=== PATIENT | male | born 1995 | race Caucasian/White ===

== ENCOUNTER 2018-01-25 09:59 | Inpatient (IN) | payer OTHER ==
[2018-01-25 10:42] VITALS: BMI 19.7
--- NOTE | 2018-01-25 11:05 | HP ---
COWS - Scale Resting Pulse: 1= [place] 81-100 Sweatin= Chills/Flushing Restless Observation: 3= Extraneous Movement Pupil Size: 2= Moderately Dilated Bone or Joint Aches: 2= Severe Diffuse Aches Runny Nose/ Eye Tearin= Runny Nose/Eyes GI Upset > 30mins: 3= Vomiting/Diarrhea Tremor Observation: 2= Slight Tremor Visible Yawning Observation: 2= >3x During Session Anxiety or Irritability: 2=Irritable/Anxious Goose Flesh Skin: 0=Smooth Skin COWS Score: 20 CIWA Score - CIWA Score Nausea/Vomitin Muscle Tremors: 3 Anxiety: 3 Agitation: 3 Paroxysmal Sweats: 2 Orientation: 0-Oriented Tacttile Disturbances: 2-Mild Itch/Numbness/Burn Auditory Disturbances: 2-Mild Harshness/Frighten Visual Disturbances: 1-Very Mild Sensitivity Headache: 2-Mild CIWA-Ar Total Score: 21 Admission ROS S - HPI Chief Complaint: i need help to stop using heroin,oxycodone ,xanax,cocaine dependence seeking detox,withdrawal symptom,never been in detox anxiety,depression,insomnia 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 to stop using drugs, Allergies/Adverse Reactions: Allergies Allergy/AdvReac Type Severity Reaction Status Date / Time No Known Allergies Allergy Verified 01/25/18 10:49 History of Present Illness: this 22 years old male with heroin,cocaine,xanax,oxycodone dependence seeking detox as mentioned - Ebola screening Have you traveled outside of the country in the last 21 days: No (N) Have you had contact with anyone from an Ebola affected area: No Have you been sick,other than usual withdrawal symptoms: No Do you have a fever: No - Review of Systems Constitutional: Chills, Loss of Appetite, Malaise, Night Sweats, Changes in sleep, Weakness, Unintentional Wgt. Loss EENT: reports: Tearing, Nose Congestion Respiratory: reports: No Symptoms reported Cardiac: reports: No Symptoms Reported, Palpitations GI: reports: Diarrhea, Nausea, Vomiting, Abdominal cramping : reports: No Symptoms Reported Musculoskeletal: reports: Back Pain, Joint Pain, Muscle Pain, Joint Stiffness Integumentary: reports: Dryness Neuro: reports: Headache, Tremors Endocrine: reports: No Symptoms Reported Hematology: reports: No Symptoms Reported Psychiatric: reports: No Sypmtoms Reported, Judgement Intact, Mood/Affect Appropiate, Orientated x3, Anxious, Depressed Patient History - Patient Medical History Hx Anemia: No Hx Asthma: Yes (childhood asthma) Hx Chronic Obstructive Pulmonary Disease (COPD): No Hx Cancer: No Hx Cardiac Disorders: No Hx Congestive Heart Failure: No Hx Hypertension: No Hx Hypercholesterolemia: No Hx Pacemaker: No HX Cerebrovascular Accident: No Hx Seizures: No Hx Dementia: No Hx Diabetes: No Hx Gastrointestinal Disorders: No Hx Liver Disease: No Hx Genitourinary Disorders: No Hx Sexually Transmitted Disorders: No Hx Renal Disease (ESRD): No Hx Thyroid Disease: No Hx Human Immunodeficiency Virus (HIV): No (last 2016) Hx Hepatitis C: No Hx Depression: Yes (anxiety,depression) Hx Suicide Attempt: No Hx Bipolar Disorder: No Hx Schizophrenia: No Other Medical History: no suicidal,no homicidal - Patient Surgical History Past Surgical History: No - PPD History Previous Implant?: Yes Documented Results: Negative w/o proof Implanted On Prior [facility] Admission?: No PPD to be Administered?: Yes - Smoking Cessation Smoking history: Current every day smoker Have you smoked in the past 12 months: Yes Aproximately how many cigarettes per day: 1 Hx Chewing Tobacco Use: No Initiated information on smoking cessation: Yes 'Breaking Loose' booklet given: 01/25/18 - Substance & Tx. History Hx Alcohol Use: No Hx Substance Use: Yes Substance Use Type: Cocaine, Heroin, Opiates, Tranquilizers Hx Substance Use Treatment: No - Substances Abused Heroin Route: Inhalation Frequency: Daily Amount used: 25 BAGS DAILY ($250) Age of first use: 19 Date of Last Use: 01/24/18 Cocaine Route: Inhalation Frequency: Daily Amount used: 10-15 BAGS DAILY Age of first use: 21 Date of Last Use: 01/24/18 Alprazolam (Xanax) Route: Oral Amount used: 1MG DAILY Age of first use: 17 Date of Last Use: 01/24/18 OXYCODONE Route: Oral Frequency: Daily Amount used: 60 MG DAILY Age of first use: 17 Date of Last Use: 01/24/18 Family Disease History - Family Disease History Family History: Denies Admission Physical Exam BHS - Vital Signs Vital Signs: Vital Signs - 24 hr 05/13/18 10:40 Pulse Rate 94 H Respiratory 16 Rate Blood Pressure 113/74 - Physical General Appearance: Yes: Moderate Distress, Tremorous, Irritable, Sweating, Anxious HEENTM: Yes: Normal ENT Inspection, MAURICIO, Pharynx Normal Respiratory: Yes: Lungs Clear, Normal Breath Sounds, No Respiratory Distress Neck: Yes: Within Normal Limits, Supple, Trachea in good position Breast: Yes: Within Normal Limits Cardiology: Yes: Within Normal Limits, Regular Rhythm, Regular Rate, S1, S2 Abdominal: Yes: Within Normal Limits, Normal Bowel Sounds, Non Tender, Flat, Soft Genitourinary: Yes: Within Normal Limits Back: Yes: Normal Inspection, Muscle Spasm Musculoskeletal: Yes: full range of Motion, Back pain, Muscle Pain, Muscle weakness Extremities: Yes: Within Normal Limits, Normal Range of Motion, Tremors Neurological: Yes: tombstone erector II-XII NML intact, Fully Oriented, Alert, Motor Strength 5/5 Integumentary: Yes: Dry Lymphatic: Yes: Within Normal Limits - Diagnostic (1) Opioid dependence with withdrawal Current Visit: Yes Status: Acute (2) Uncomplicated sedative, hypnotic or anxiolytic withdrawal Current Visit: Yes Status: Acute (3) Cocaine dependence Current Visit: Yes Status: Acute (4) Weight loss Current Visit: Yes Status: Acute (5) Insomnia secondary to depression with anxiety Current Visit: Yes Status: Acute (6) Asthma Current Visit: Yes Status: Acute (7) Low back pain Current Visit: Yes Status: Acute Cleared for Admission [facility] - Detox or Rehab [facility] Level of Care: Medically Managed Detox Regimen/Protocol: Methadone/Valium [facility] Breath Alcohol Content Breath Alcohol Content: 0 Urine Drug Screen - Results Drug Screen Negative: No Urine Drug Screen Results: YADIEL-Cocaine, OPI-Opiates, BZO-Benzodiazepines, TCA- Tricyclic Antidepress
[2018-01-25] MEDS ORDERED: diazePAM 5 MG TABLET PO ONE (11:21)
[2018-01-25] MEDS ORDERED: MENTHOL/PHENOL 1 EACH UD MM PRN (11:21)
[2018-01-25] MEDS ORDERED: MAGNESIUM HYDROX 2400MG/30ML ORAL SUSPENSION 30 ML CUP PO PRN (11:21)
[2018-01-25] MEDS ORDERED: MAGNESIUM CITRATE 300 ML BOTTLE PO PRN (11:21)
[2018-01-25] MEDS ORDERED: LOPERAMIDE HCL 2 MG CAPSULE PO PRN (11:21)
[2018-01-25] MEDS ORDERED: MAG HYDROX/AL HYDROX/SIMETH 30 ML UNIT-DOSE CUP PO PRN (11:21)
[2018-01-25] MEDS ORDERED: ACETAMINOPHEN 325 MG TABLET (FP) PO PRN (11:21)
[2018-01-25] MEDS ORDERED: METHADONE HCL 10 MG TABLET (FOR DETOX USE ONLY) PO ONE ×2 (11:21→23:00)
[2018-01-25] MEDS ORDERED: guaiFENesin/D-METHORPHAN HB 10 ML UNIT-DOSE CUPS PO PRN (11:21)
[2018-01-25] MEDS ORDERED: P-EPHED 60MG/TRIPROLIDI 2.5MG TABLET PO PRN (11:21)
[2018-01-25] MEDS ORDERED: IBUPROFEN 400 MG TABLET (FP) PO PRN (11:21)
[2018-01-25] MEDS ORDERED: hydrOXYzine PAMOATE 25 MG CAPSULE (FP) PO PRN (11:21)
[2018-01-25] MEDS ORDERED: CYCLOBENZAPRINE HCL 5 MG TABLET PO PRN (11:26)
[2018-01-25] MEDS: diazePAM 5 MG TABLET PO SCH ×2 (13:10→22:19)
[2018-01-25] MEDS: diazePAM 5 MG TABLET PO PRN (17:17)
[2018-01-25 18:18] LABS: URINE APPEARANCE CLEAR; URINE BILIRUBIN NEGATIVE (<2.0 mg/dL); URINE COLOR YELLOW; URINE GLUCOSE (UA) NEGATIVE (NEGATIVE); URINE KETONE NEGATIVE (NEGATIVE); URINE LEUK ESTERASE NEGATIVE (NEGATIVE); URINE NITRITE NEGATIVE (NEGATIVE); URINE PROTEIN NEGATIVE (NEGATIVE)
[2018-01-25] MEDS ORDERED: MELATONIN 5 MG TABLETS PO PRN (22:00)
[2018-01-25] MEDS: THIAMINE HCL 100 MG TABLET (FP) PO SCH (22:18)
[2018-01-25] MEDS: cloNIDine HCL 0.1 MG TABLET PO SCH (22:22)
[2018-01-26] MEDS: diazePAM 5 MG TABLET PO PRN ×3 (03:26→17:54)
[2018-01-26] MEDS: diazePAM 5 MG TABLET PO SCH ×3 (07:04→22:09)
[2018-01-26 10:00] LABS: HEMATOCRIT 40.9 % (35.4-49); HEMOGLOBIN 14.6 GM/dL (11.7-16.9); MCH 30.9 pg (25.7-33.7); MCHC 35.7 g/dl (32.0-35.9); MEAN CELL VOLUME 86.7 fl (80-96); MEAN PLT VOLUME 7.8 fl (7.5-11.1); PLATELET COUNT 248 K/MM3 (134-434); RBC 4.72 M/mm3 (4.00-5.60); RDW 13.8 % (11.9-15.9)
[2018-01-26] MEDS ORDERED: PRENATAL VITAMINS W/ FOLIC ACID TABLET (FP) PO SCH (10:00)
[2018-01-26] MEDS ORDERED: METHADONE HCL 10 MG TABLET (FOR DETOX USE ONLY) PO SCH (10:00)
[2018-01-26 10:11] LABS: CHLORIDE 108 mmol/L (98-107); POTASSIUM 4.3 mmol/L (3.5-5.1); SODIUM 140 mmol/L (136-145)
[2018-01-26 10:17] LABS: ALBUMIN 3.9 g/dl (3.4-5.0); ALK PHOS 86 U/L (45-117); ANION GAP 6 (8-16); BILIRUBIN,TOTAL 0.4 mg/dL (0.2-1.0); BLOOD UREA NITROGEN 12 mg/dL (7-18); CALCIUM 8.6 mg/dL (8.5-10.1); CO2 26 mmol/L (21-32); CREATININE 0.9 mg/dL (0.7-1.3); GLUCOSE,RANDOM 88 mg/dL (74-106); SGOT/AST 13 U/L (15-37); SGPT/ALT 11 U/L (12-78); TOT PROT 6.3 g/dl (6.4-8.2)
[2018-01-26] MEDS: cloNIDine HCL 0.1 MG TABLET PO SCH ×2 (10:23→22:08)
--- NOTE | 2018-01-26 11:10 | EKG ---
Test Reason : Blood Pressure : / mmHG Vent. Rate : 102 BPM Atrial Rate : 102 BPM P-R Int : 122 ms QRS Dur : 102 ms QT Int : 346 ms P-R-T Axes : 059 074 041 degrees QTc Int : 450 ms SINUS TACHYCARDIA INCOMPLETE RIGHT BUNDLE BRANCH BLOCK BORDERLINE ECG NO PREVIOUS ECGS AVAILABLE Confirmed by TIKA ARTEAGA MD ([id number]) on 01/26/2018 11:10:13 AM Referred By: Confirmed By:TIKA ARTEAGA MD
--- NOTE | 2018-01-26 14:50 | CONSULT ---
[facility] Psychiatric Consult - Data Date of interview: 01/26/18 Admission source: [facility] Identifying data: First admission to [facility] for this 22 y/o male seeking detox treatment on for heroin,cocaine and xanax dependence.Patient is single without children,domiciled (lives with parents) and currently employed (as per self-report). Substance Abuse History: Confirmed by patient in this report.Details in current [facility] report : Smoking history: Current every day smoker. Have you smoked in the past 12 months: Yes. Aproximately how many cigarettes per day: 1. Hx Chewing Tobacco Use: No. Initiated information on smoking cessation: Yes. 'Breaking Loose' booklet given: 01/25/18. - Substance & Tx. History. Hx Alcohol Use: No. Hx Substance Use: Yes. Substance Use Type: Cocaine, Heroin, Opiates, Tranquilizers. Hx Substance Use Treatment: No. - Substances Abused. Heroin. Route: Inhalation. Frequency: Daily. Amount used: 25 BAGS DAILY ($250 ). Age of first use: 19. Date of Last Use: 01/24/18. Cocaine. Route: Inhalation. Frequency: Daily. Amount used: 10-15 BAGS DAILY. Age of first use : 21. Date of Last Use: 01/24/18. Alprazolam (Xanax). Route: Oral. Amount used: 1MG DAILY. Age of first use: 17. Date of Last Use: 01/24/18. OXYCODONE. Route: Oral. Frequency: Daily. Amount used: 60 MG DAILY. Age of first use: 17. Date of Last Use: 01/24/18 Medical History: Distant history of bronchial asthma. Psychiatric History: Patient denies. Physical/Sexual Abuse/Trauma History: Patient denies. Additional Comment: Urine Drug Screen Results: YADIEL-Cocaine, OPI-Opiates, BZO- Benzodiazepines, TCA-Tricyclic Antidepressant.Noted. Mental Status Exam - Mental Status Exam Alert and Oriented to: Time, Place, Person Cognitive Function: Good Patient Appearance: Disheveled Mood: Nervous, Withdrawn Affect: Mood Congruent Patient Behavior: Fatigued, Appropriate, Cooperative Speech Pattern: Clear, Appropriate Voice Loudness: Normal Thought Process: Intact, Goal Oriented Thought Disorder: Not Present Hallucinations: Denies Suicidal Ideation: Denies Homicidal Ideation: Denies Insight/Judgement: Poor Sleep: Poorly, Difficulty falling asleep Appetite: Good Muscle strength/Tone: Normal Gait/Station: Normal Psychiatric Findings - Problem List ([place] 1, 2,3) (1) Opioid dependence with withdrawal Current Visit: Yes Status: Acute (2) Uncomplicated sedative, hypnotic or anxiolytic withdrawal Current Visit: Yes Status: Acute (3) Cocaine dependence Current Visit: Yes Status: Acute (4) Insomnia Current Visit: Yes Status: Acute - Initial Treatment Plan Initial Treatment Plan: Psychoeducation and support.Orientation to the unit.Detoxification in progress.Ambien 5 mg po hs prn.Patient s made aware of the risk of parasomnias.Agrees with this careplan.Observation.
--- NOTE | 2018-01-26 15:01 | PN ---
[facility] CIWA - CIWA Score Nausea/Vomitin Muscle Tremors: 3 Anxiety: 3 Agitation: 3 Paroxysmal Sweats: 3 Orientation: 0-Oriented Tacttile Disturbances: 0-None Auditory Disturbances: 0-None Visual Disturbances: 0-None Headache: 0-None Present CIWA-Ar Total Score: 14 S COWS - Scale Resting Pulse: 1= [place] 81-100 Sweatin=Flushed/Facial Moisture Restless Observation: 1= Difficult to Sit Still Pupil Size: 0= Normal to Room Light Bone or Joint Aches: 1= Mild Discomfort Runny Nose/ Eye Tearin= Nasal Congestion GI Upset > 30mins: 0= None S Progress Note (SOAP) Subjective: Sweats shakes sleep disturbance Objective: 01/26/18 15:02 A & O x 3 Vital Signs Temperature 97 F L 01/26/18 14:33 Pulse Rate 83 01/26/18 14:33 Respiratory Rate 18 01/26/18 14:33 Blood Pressure 100/69 01/26/18 14:33 O2 Sat by Pulse Oximetry (%) Laboratory Last Values WBC 6.0 K/mm3 (4.0-10.0) 01/26/18 07:00 RBC 4.72 M/mm3 (4.00-5.60) 01/26/18 07:00 Hgb 14.6 GM/dL (11.7-16.9) 01/26/18 07:00 Hct 40.9 % (35.4-49) 01/26/18 07:00 MCV 86.7 fl (80-96) 01/26/18 07:00 MCH 30.9 pg (25.7-33.7) 01/26/18 07:00 MCHC 35.7 g/dl (32.0-35.9) 01/26/18 07:00 RDW 13.8 % (11.9-15.9) 01/26/18 07:00 Plt Count 248 K/MM3 (134-434) 01/26/18 07:00 MPV 7.8 fl (7.5-11.1) 01/26/18 07:00 Sodium 140 mmol/L (136-145) 01/26/18 07:00 Potassium 4.3 mmol/L (3.5-5.1) 01/26/18 07:00 Chloride 108 mmol/L (98-107) H 01/26/18 07:00 Carbon Dioxide 26 mmol/L (21-32) 01/26/18 07:00 Anion Gap 6 (8-16) L 01/26/18 07:00 BUN 12 mg/dL (7-18) 01/26/18 07:00 Creatinine 0.9 mg/dL (0.7-1.3) 01/26/18 07:00 Creat Clearance w eGFR > 60 (>60) 01/26/18 07:00 Random Glucose 88 mg/dL (74-106) 01/26/18 07:00 Calcium 8.6 mg/dL (8.5-10.1) 01/26/18 07:00 Total Bilirubin 0.4 mg/dL (0.2-1.0) 01/26/18 07:00 AST 13 U/L (15-37) L 01/26/18 07:00 ALT 11 U/L (12-78) L 01/26/18 07:00 Alkaline Phosphatase 86 U/L (45-117) 01/26/18 07:00 Total Protein 6.3 g/dl (6.4-8.2) L 01/26/18 07:00 Albumin 3.9 g/dl (3.4-5.0) 01/26/18 07:00 Urine Color Yellow 01/25/18 14:00 Urine Appearance Clear 01/25/18 14:00 Urine pH 5.0 (5.0-8.0) 01/25/18 14:00 Ur Specific [place] 1.028 (1.001-1.035) 01/25/18 14:00 Urine Protein Negative (NEGATIVE) 01/25/18 14:00 Urine Glucose (UA) Negative (NEGATIVE) 01/25/18 14:00 Urine Ketones Negative (NEGATIVE) 01/25/18 14:00 Urine Blood Negative (NEGATIVE) 01/25/18 14:00 Urine Nitrite Negative (NEGATIVE) 01/25/18 14:00 Urine Bilirubin Negative (<2.0 mg/dL) 01/25/18 14:00 Urine Urobilinogen 2.0 mg/dL (0.2-1.0) 01/25/18 14:00 Ur Leukocyte Esterase Negative (NEGATIVE) 01/25/18 14:00 RPR Titer Nonreactive (NONREACTIVE) 01/26/18 07:00 labs noted Assessment: 01/26/18 15:02 withdrawal sx Plan: continue detox Increase hydration
[2018-01-26] MEDS ORDERED: ZOLPIDEM TARTRATE 5 MG TABLET PO PRN (22:00)
[2018-01-26] MEDS: THIAMINE HCL 100 MG TABLET (FP) PO SCH (22:09)
[2018-01-27] MEDS: diazePAM 5 MG TABLET PO PRN (03:10)
[2018-01-27 09:26] VITALS: BP 103/63; PULSE 83; TEMP 96.9
[2018-01-27] MEDS ORDERED: diazePAM 5 MG TABLET PO SCH (10:00)
[2018-01-27] MEDS ORDERED: METHADONE HCL 5 MG TABLET (FOR DETOX USE ONLY) PO SCH (10:00)
--- NOTE | 2018-01-27 11:20 | PN ---
[facility] CIWA - CIWA Score Nausea/Vomitin-No Nausea/No Vomiting Muscle Tremors: 3 Anxiety: 5 Agitation: 4-Moderately Restless Paroxysmal Sweats: 2 Orientation: 2-Disoriented Date<2 days Tacttile Disturbances: 0-None Auditory Disturbances: 2-Mild Harshness/Frighten Visual Disturbances: 0-None Headache: 0-None Present CIWA-Ar Total Score: 18 BHS COWS - Scale Resting Pulse: 1= [place] 81-100 Sweatin= Chills/Flushing Restless Observation: 1= Difficult to Sit Still Pupil Size: 0= Normal to Room Light Bone or Joint Aches: 2= Severe Diffuse Aches Runny Nose/ Eye Tearin= None GI Upset > 30mins: 0= None Tremor Observation of Outstretched Hands: 2= Slight Tremor Visible Yawning Observation: 2= >3x During Session Anxiety or Irritability: 2=Irritable/Anxious Goose Flesh Skin: 3=Piloerection COWS Score: 14 S Progress Note (SOAP) Subjective: Body Aches, Sweating, Anxious, Interrupted Sleep. Objective: PATIENT A & O X 2 (UNCERTAIN ABOUT CURRENT DAY / DATE). PATIENT OBSERVED AMBULATING ON UNIT. NO ACUTE DISTRESS. 01/27/18 11:19 Vital Signs Temperature 96.9 F L 01/27/18 09:24 Pulse Rate 83 01/27/18 09:24 Respiratory Rate 18 01/27/18 09:24 Blood Pressure 103/63 01/27/18 09:24 O2 Sat by Pulse Oximetry (%) Laboratory Tests 01/25/18 01/26/18 01/26/18 14:00 07:00 07:00 WBC 6.0 RBC 4.72 Hgb 14.6 Hct 40.9 MCV 86.7 MCH 30.9 MCHC 35.7 RDW 13.8 Plt Count 248 MPV 7.8 Sodium 140 Potassium 4.3 Chloride 108 H Carbon Dioxide 26 Anion Gap 6 L BUN 12 Creatinine 0.9 Creat Clearance w eGFR > 60 Random Glucose 88 Calcium 8.6 Total Bilirubin 0.4 AST 13 L ALT 11 L Alkaline Phosphatase 86 Total Protein 6.3 L Albumin 3.9 Urine Color Yellow Urine Appearance Clear Urine pH 5.0 Ur Specific [place] 1.028 Urine Protein Negative Urine Glucose (UA) Negative Urine Ketones Negative Urine Blood Negative Urine Nitrite Negative Urine Bilirubin Negative Urine Urobilinogen 2.0 Ur Leukocyte Esterase Negative RPR Titer 01/26/18 07:00 WBC RBC Hgb Hct MCV MCH MCHC RDW Plt Count MPV Sodium Potassium Chloride Carbon Dioxide Anion Gap BUN Creatinine Creat Clearance w eGFR Random Glucose Calcium Total Bilirubin AST ALT Alkaline Phosphatase Total Protein Albumin Urine Color Urine Appearance Urine pH Ur Specific [place] Urine Protein Urine Glucose (UA) Urine Ketones Urine Blood Urine Nitrite Urine Bilirubin Urine Urobilinogen Ur Leukocyte Esterase RPR Titer Nonreactive LABS NOTED. Assessment: 01/27/18 11:20 WITHDRAWAL SYMPTOMS. Plan: CONTINUE DETOX. INCREASE DAILY PO FLUID INTAKE.
--- NOTE | 2018-01-27 11:22 | DS ---
[facility] Detox Discharge Summary Admission Date: 01/25/18 Discharge Date: 01/27/18 - History Present History: Cocaine Dependence, Opioid Dependence, Sedative Dependence Additional Comments: PATIENT DOES NOT WISH TO STAY TO COMPLETE DETOX REGIMEN. RISKS OF LEAVING DETOX UNIT AGAINST MEDICAL ADVICE AND PRIOR TO COMPLETION OF DETOX REGIMEN EXPLAINED TO PATIENT. PATIENT ADVISED TO GO IMMEDIATELY TO NEAREST ER SHOULD ANY INTOLERABLE DETOX SYMPTOMS DEVELOP AT ANY TIME. PATIENT LEFT DETOX UNIT IN STABLE MEDICAL CONDITION. Pertinent Past History: Anxiety, Depression, Insomnia, Asthma (During Childhood), Weight Loss. - Physical Exam Results Vital Signs: Vital Signs Temperature 96.9 F L 01/27/18 09:24 Pulse Rate 83 01/27/18 09:24 Respiratory Rate 18 01/27/18 09:24 Blood Pressure 103/63 01/27/18 09:24 O2 Sat by Pulse Oximetry (%) Pertinent Admission Physical Exam Findings: WITHDRAWAL SYMPTOMS. Laboratory Tests 01/25/18 01/26/18 01/26/18 14:00 07:00 07:00 WBC 6.0 RBC 4.72 Hgb 14.6 Hct 40.9 MCV 86.7 MCH 30.9 MCHC 35.7 RDW 13.8 Plt Count 248 MPV 7.8 Sodium 140 Potassium 4.3 Chloride 108 H Carbon Dioxide 26 Anion Gap 6 L BUN 12 Creatinine 0.9 Creat Clearance w eGFR > 60 Random Glucose 88 Calcium 8.6 Total Bilirubin 0.4 AST 13 L ALT 11 L Alkaline Phosphatase 86 Total Protein 6.3 L Albumin 3.9 Urine Color Yellow Urine Appearance Clear Urine pH 5.0 Ur Specific [place] 1.028 Urine Protein Negative Urine Glucose (UA) Negative Urine Ketones Negative Urine Blood Negative Urine Nitrite Negative Urine Bilirubin Negative Urine Urobilinogen 2.0 Ur Leukocyte Esterase Negative RPR Titer 01/26/18 07:00 WBC RBC Hgb Hct MCV MCH MCHC RDW Plt Count MPV Sodium Potassium Chloride Carbon Dioxide Anion Gap BUN Creatinine Creat Clearance w eGFR Random Glucose Calcium Total Bilirubin AST ALT Alkaline Phosphatase Total Protein Albumin Urine Color Urine Appearance Urine pH Ur Specific [place] Urine Protein Urine Glucose (UA) Urine Ketones Urine Blood Urine Nitrite Urine Bilirubin Urine Urobilinogen Ur Leukocyte Esterase RPR Titer Nonreactive LABS NOTED. - Treatment Hospital Course: Detoxed Safely - Medication Discharge Medications: Ambulatory Orders NK [No Known Home Medication] 01/25/18 - Diagnosis (1) Asthma Status: Acute Qualifiers: Asthma severity: mild Asthma persistence: intermittent Asthma complication type: uncomplicated Qualified Code(s): J45.20 - Mild intermittent asthma, uncomplicated (2) Cocaine dependence Status: Acute Qualifiers: Substance use status: uncomplicated Qualified Code(s): F14.20 - Cocaine dependence, uncomplicated (3) Opioid dependence with withdrawal Status: Acute (4) Uncomplicated sedative, hypnotic or anxiolytic withdrawal Status: Acute (5) Weight loss Status: Acute (6) Insomnia Status: Acute Qualifiers: Insomnia type: unspecified Qualified Code(s): G47.00 - Insomnia, unspecified - AMA Did Patient Leave Against Medical Advice: Yes (PATIENT DID NOT WISH TO STAY TO COMPLETE DETOX REGIMEN.)
[2018-01-29] MEDS ORDERED: diazePAM 5 MG TABLET PO SCH (10:00)
[2018-01-29] MEDS ORDERED: METHADONE HCL 10 MG TABLET (FOR DETOX USE ONLY) PO SCH (10:00)
[2018-01-30] MEDS ORDERED: METHADONE HCL 5 MG TABLET (FOR DETOX USE ONLY) PO SCH (06:00)
== END 2018-01-27 09:50 | disposition left against medical advice (07) | DRG 770 ==
LOC: YASAS 09:59 → Y3N 11:05
PROVIDERS: ADMIT Internal Medicine; ATTEND Internal Medicine
PROC: HZ2ZZZZ Detoxification Services for Substance Abuse Treatment (ICD-10-PCS; principal; 2018-01-25)
DX: F11.23 Opioid dependence with withdrawal (principal); F13.230 Sedative, hypnotic or anxiolytic dependence with withdrawal, uncomplicated; F14.20 Cocaine dependence, uncomplicated; J45.20 Mild intermittent asthma, uncomplicated; G47.00 Insomnia, unspecified; M54.5 Low back pain; Z87.898 Personal history of other specified conditions; Z72.0 Tobacco use
CPT/HCPCS: 36415; 80053; 81003; 85027; 86593; 93005; 93010; J0735

== ENCOUNTER 2019-03-05 11:28 | Inpatient (IN) | payer OTHER ==
[2019-03-05 16:54] VITALS: BMI 21.4
--- NOTE | 2019-03-05 17:52 | HP ---
COWS - Scale Resting Pulse: 0= [place] 80 or Below (HR: 70) Sweatin=Flushed/Facial Moisture Restless Observation: 3= Extraneous Movement Pupil Size: 2= Moderately Dilated (Pupils = 5mm) Bone or Joint Aches: 1= Mild Discomfort Runny Nose/ Eye Tearin= Runny Nose/Eyes (Runny nose) GI Upset > 30mins: 1= Stomach Cramp Tremor Observation: 2= Slight Tremor Visible Yawning Observation: 0= None Anxiety or Irritability: 1=Feels Anxious/Irritable Goose Flesh Skin: 0=Smooth Skin COWS Score: 14 CIWA Score - Admission Criteria [facility]ASAS Guidelines: Admission for Medically Managed Detox: Requires at least one of the followin. CIWA greater than 12 2. Seizures within the past 24 hours 3. Delirium tremens within the past 24 hours 4. Hallucinations within the past 24 hours 5. Acute intervention needed for co occurring medical disorder 6. Acute intervention needed for co occurring psychiatric disorder 7. Severe withdrawal that cannot be handled at a lower level of care (continued vomiting, continued diarrhea, abnormal vital signs) requiring intravenous medication and/or fluids 8. Admission ROS [facility] Chief Complaint: having heroin withdrawal Allergies/Adverse Reactions: Allergies Allergy/AdvReac Type Severity Reaction Status Date / Time No Known Allergies Allergy Verified 03/05/19 16:46 History of Present Illness: 23 yom presents with withdrawal symptoms and requesting detox. Patient states referred by PCP. Heroin use began at age 19. Was sober for 10 months and relapsed 2 months ago. States current use is 5 bundles/day, was smoking the heroin and IV use just started 2-3 days ago, which patient states triggered desire for help. Denies overdose. States last used 24 hrs ago. Crack/cocaine use began at age 22. Smokes crack x past 2 months after 10 month sobriety. States last used 24 hrs ago. Nicotine use since age 17. Smokes about 1 cig/day. Marijuana denies known use in 2 years. Denies alcohol use. Denies seizures or blackouts. PMHx: Asthma as a child - no exacerbation since age 7. MHHx: Difficulty sleeping. Occ sadness. Denies thoughts of harming self or others. Does not see a MH Provider. Search Terms: Tavares Hartman, 1995 Search Date: 03/05/2019 05:48:21 PM The Drug Utilization Report below displays all of the controlled substance prescriptions, if any, that your patient has filled in the last twelve months. The information displayed on this report is compiled from pharmacy submissions to the Department, and accurately reflects the information as submitted by the pharmacies. This report was requested by: Loretta Boyce | Reference #: [id number] There are no results for the search terms that you entered. Search Terms: Tavares Hartman, 1995 Search Date: 03/05/2019 05:48:49 PM States Searched: [place], [place], [place], [place], [place], [place] The Drug Utilization Report below displays the controlled substance prescriptions, if any, that were dispensed in the indicated state(s). The information displayed on this report is compiled from requests submitted to other states' PMPs, and accurately reflects the information as returned by them. Blank dennison indicate data not provided by other state. This report was requested by: Loretta Boyce | Reference #: [id number] Exam Limitations: No Limitations - Ebola screening Have you traveled outside of the country in the last 21 days: No Have you had contact with anyone from an Ebola affected area: No Have you been sick,other than usual withdrawal symptoms: No (Denies recent exposure to measles) Do you have a fever: No - Review of Systems Constitutional: Chills, Diaphoresis (Increased facial moisture), Changes in sleep (Difficulty falling asleep) EENT: reports: Nose Congestion Respiratory: reports: No Symptoms reported Cardiac: reports: No Symptoms Reported GI: reports: Nausea, Abdominal cramping, Other (dry heaving earlier) : reports: No Symptoms Reported Musculoskeletal: reports: Back Pain (Occ LBP in mornigs when wakes up - usually a "7-8". Some achy back pain now - curently a 5. Feels now back pain is r/t withdrawal.), Other (Occ muscle spasms and tenderness behind knees and in calf area. Intermittent for months.) Integumentary: reports: No Symptoms Reported Neuro: reports: No Symptoms reported Endocrine: reports: Increased Thirst Hematology: reports: No Symptoms Reported Psychiatric: reports: Judgement Intact, Orientated x3, Agitated, Depressed (Occ sadness. Denies thoughts of harming self or others.) Patient History - Patient Medical History Hx Anemia: No Hx Asthma: Yes (childhood asthma) Hx Chronic Obstructive Pulmonary Disease (COPD): No Hx Cancer: No Hx Cardiac Disorders: No Hx Congestive Heart Failure: No Hx Hypertension: No Hx Hypercholesterolemia: No Hx Pacemaker: No HX Cerebrovascular Accident: No Hx Seizures: No Hx Dementia: No Hx Diabetes: No Hx Gastrointestinal Disorders: No Hx Liver Disease: No Hx Genitourinary Disorders: No Hx Sexually Transmitted Disorders: No Hx Renal Disease (ESRD): No Hx Thyroid Disease: No Hx Human Immunodeficiency Virus (HIV): No (last 2016) Hx Hepatitis C: No Hx Depression: Yes (anxiety,depression) Hx Suicide Attempt: No Hx Bipolar Disorder: No Hx Schizophrenia: No - Patient Surgical History Past Surgical History: No Hx Neurologic Surgery: No Hx Cataract Extraction: No Hx Cardiac Surgery: No Hx Lung Surgery: No Hx Breast Surgery: No Hx Breast Biopsy: No Hx Abdominal Surgery: No Hx Appendectomy: No Hx Cholecystectomy: No Hx Genitourinary Surgery: No Hx Section: No Hx Orthopedic Surgery: No Anesthesia Reaction: No - PPD History Previous Implant?: Yes Documented Results: Negative w/proof Implanted On Prior [facility] Admission?: Yes Date: 01/27/18 PPD to be Administered?: Yes - Smoking Cessation Smoking history: Current every day smoker Have you smoked in the past 12 months: Yes Aproximately how many cigarettes per day: 1 Hx Chewing Tobacco Use: No Initiated information on smoking cessation: Yes 'Breaking Loose' booklet given: 03/05/19 - Substance & Tx. History Hx Alcohol Use: No Hx Substance Use: Yes Substance Use Type: Cocaine, Heroin, Marijuana Hx Substance Use Treatment: Yes (detox, no rehab or out-patient) - Substances abused Heroin Substance route: Injection Frequency: Daily Amount used: 2 to 3 grams Age of first use: 19 Date of last use: 03/04/19 Crack Substance route: Smoking Frequency: Daily Amount used: 1 gram Age of first use: 22 Date of last use: 03/05/19 Admission Physical Exam BHS - Vital Signs Vital Signs: Vital Signs - 24 hr 03/05/19 03/05/19 16:44 17:13 Temperature 98.5 F 98.5 F Pulse Rate 91 H 91 H Respiratory 18 18 Rate Blood Pressure 116/81 116/81 - Physical General Appearance: Yes: Mild Distress, Tremorous (Mild tremors of hands when arms extended), Sweating (Increased facial mositure) HEENTM: Yes: EOMI, Hearing grossly Normal, Normocephalic, Normal Voice, MAURICIO ( Pupils = 5mm), Pharynx Normal, Rhinorrhea (Clear nasal discharge) Respiratory: Yes: Lungs Clear (O2 Sat = 99%), Normal Breath Sounds, No Respiratory Distress Neck: Yes: No masses,lesions,Nodules, Supple Breast: Yes: Breast Exam Deferred Cardiology: Yes: Regular Rhythm, Regular Rate (HR: 70), S1, S2 Abdominal: Yes: Non Tender, Flat, Soft, Increased Bowel Sounds Genitourinary: Yes: Within Normal Limits Back: Yes: Normal Inspection Musculoskeletal: Yes: full range of Motion, Gait Steady Extremities: Yes: Normal Capillary Refill, Tremors (Increased facial moisture), Other (Tenderness of (R) calf upon palpation. No increased erythema. No swelling. No increased warmth. Negative Marie's. Pedal pulse (+).) Neurological: Yes: dealer card room II-XII NML intact, Fully Oriented, Alert, Motor Strength 5/5, Normal Response Integumentary: Yes: Normal Color, Warm, Diaphoresis (Increased facial moisture) , [place] (Only 2 injection sites noted on each antecubital area. No increased erythema, warmth or induration.) Lymphatic: Yes: Within Normal Limits - Diagnostic (1) History of asthma Current Visit: Yes Status: Inactive (2) Cocaine dependence Current Visit: Yes Status: Chronic Qualifiers: Substance use status: uncomplicated Qualified Code(s): F14.20 - Cocaine dependence, uncomplicated (3) Opioid dependence with withdrawal Current Visit: Yes Status: Acute (4) Nicotine abuse Current Visit: Yes Status: Chronic Comment: Only smokes about 1 cig/day Cleared for Admission [facility] - Detox or Rehab [facility] Level of Care: Medically Managed Detox Regimen/Protocol: Methadone Claeared for Rehab Admission: No Breathalyzer - Breathalyzer Breathalyzer: 0 Urine Drug Screen - Test Device Lot number: [id number] Expiration date: 11/12/20 - Control Is test valid?: Yes - Results Drug screen NEGATIVE: No Urine drug screen results: THC-Marijuana, YADIEL-Cocaine, FEN-Fentanyl, MOP-Opiates Inpatient Rehab Admission - Rehab Decision to Admit Inpatient rehab admission?: No
[2019-03-05] MEDS ORDERED: MAG HYDROX/AL HYDROX/SIMETH 30 ML UNIT-DOSE CUP PO PRN (18:26)
[2019-03-05] MEDS ORDERED: MENTHOL/PHENOL 1 EACH UD MM PRN (18:26)
[2019-03-05] MEDS ORDERED: cloNIDine HCL 0.1 MG TABLET PO PRN (18:26)
[2019-03-05] MEDS ORDERED: IBUPROFEN 400 MG TABLET (FP) PO PRN (18:26)
[2019-03-05] MEDS ORDERED: MAGNESIUM HYDROX 2400MG/30ML ORAL SUSPENSION 30 ML CUP PO PRN (18:26)
[2019-03-05] MEDS ORDERED: METHADONE HCL 10 MG TABLET (FOR DETOX USE ONLY) PO ONE ×2 (18:26→23:00)
[2019-03-05] MEDS ORDERED: NALOXONE HCL 0.4 MG/ML VIAL IVPUSH PRN (18:26)
[2019-03-05] MEDS ORDERED: ACETAMINOPHEN 325 MG TABLET (FP) PO PRN ×2 (18:26)
[2019-03-05] MEDS ORDERED: NICOTINE POLACRILEX 2 MG GUM BUC PRN (18:26)
[2019-03-05] MEDS ORDERED: MAGNESIUM CITRATE 300 ML BOTTLE PO PRN (18:26)
[2019-03-05] MEDS ORDERED: guaiFENesin 200 MG/10 ML 10 ML UNIT-DOSE CUPS PO PRN (18:26)
[2019-03-05] MEDS ORDERED: BISMUTH SUBSALICYLATE 524 MG/30 ML UD PO PRN (18:26)
[2019-03-05 21:27] LABS: PH,URINE 5.5 (5.0-8.0); URINE APPEARANCE TURBID; URINE BILIRUBIN NEGATIVE (NEGATIVE); URINE COLOR DK YELLOW; URINE GLUCOSE (UA) NEGATIVE (NEGATIVE); URINE KETONE TRACE (NEGATIVE); URINE LEUK ESTERASE NEGATIVE (NEGATIVE); URINE NITRITE NEGATIVE (NEGATIVE); URINE PROTEIN NEGATIVE (NEGATIVE)
[2019-03-05] MEDS: THIAMINE HCL 100 MG TABLET (FP) PO SCH (22:39)
[2019-03-05] MEDS: MELATONIN 5 MG TABLETS PO PRN (22:39)
[2019-03-05] MEDS: clonazePAM 0.5 MG TABLET PO PRN (22:39)
[2019-03-06] MEDS ORDERED: METHADONE HCL 10 MG TABLET (FOR DETOX USE ONLY) PO ONE (10:00)
[2019-03-06] MEDS: PRENATAL VITAMINS W/ FOLIC ACID TABLET (FP) PO SCH (10:26)
[2019-03-06] MEDS: METHOCARBAMOL 500 MG TABLET PO PRN ×2 (10:28→18:01)
[2019-03-06] MEDS: clonazePAM 0.5 MG TABLET PO PRN ×2 (10:30→18:00)
--- NOTE | 2019-03-06 10:32 | PN ---
BHS COWS - Scale Resting Pulse: 0= [place] 80 or Below Sweatin= Beads of Sweat on Face Restless Observation: 1= Difficult to Sit Still Pupil Size: 0= Normal to Room Light Bone or Joint Aches: 2= Severe Diffuse Aches Runny Nose/ Eye Tearin= None GI Upset > 30mins: 0= None Tremor Observation of Outstretched Hands: 2= Slight Tremor Visible Yawning Observation: 1= 1-2x During Session Anxiety or Irritability: 2=Irritable/Anxious Goose Flesh Skin: 0=Smooth Skin COWS Score: 11 S Progress Note (SOAP) Subjective: c/o sweats, irritability, and anxiety. Objective: 03/06/19 10:32 Vital Signs 03/06/19 03/06/19 03/06/19 03:52 06:32 09:50 Temperature 97.8 F 97.0 F L Pulse Rate 59 L 75 Respiratory 18 16 18 Rate Blood Pressure 90/61 111/72 Labs pending. Assessment: 03/06/19 10:32 AOX3, in no acute distress. Full rom, ambulates in the unit. withdrawal signs Plan: continue detox.
[2019-03-06 10:38] LABS: ALBUMIN 3.6 g/dl (3.4-5.0); BILIRUBIN,TOTAL 0.2 mg/dL (0.2-1); BLOOD UREA NITROGEN 13.3 mg/dL (7-18); CALCIUM 8.8 mg/dL (8.5-10.1); CREATININE 0.8 mg/dL (0.55-1.3); POTASSIUM 4.3 mmol/L (3.5-5.1); TOT PROT 6.2 g/dl (6.4-8.2)
[2019-03-06 10:43] LABS: HEMATOCRIT 41.3 % (35.4-49); HEMOGLOBIN 14.1 GM/dL (11.7-16.9); MCH 30.6 pg (25.7-33.7); MCHC 34.2 g/dl (32.0-35.9); MEAN CELL VOLUME 89.5 fl (80-96); MEAN PLT VOLUME 7.6 fl (7.5-11.1); PLATELET COUNT 284 K/MM3 (134-434); RBC 4.61 M/mm3 (4.00-5.60); RDW 13.5 % (11.9-15.9); WHITE BLOOD COUNT 7.6 K/mm3 (4.0-10.0)
--- NOTE | 2019-03-06 12:37 | EKG ---
Test Reason : Blood Pressure : / mmHG Vent. Rate : 061 BPM Atrial Rate : 061 BPM P-R Int : 128 ms QRS Dur : 102 ms QT Int : 392 ms P-R-T Axes : 050 067 043 degrees QTc Int : 394 ms NORMAL SINUS RHYTHM NORMAL ECG WHEN COMPARED WITH ECG OF 25-JAN-2018 12:21, VENT. RATE HAS DECREASED BY 41 BPM QT HAS SHORTENED Confirmed by SU HODGE MD ([id number]) on 03/06/2019 12:36:40 PM Referred By: Confirmed By:SU HODGE MD
[2019-03-06] MEDS: MELATONIN 5 MG TABLETS PO PRN (22:40)
[2019-03-06] MEDS: THIAMINE HCL 100 MG TABLET (FP) PO SCH (22:40)
[2019-03-07] MEDS: clonazePAM 0.5 MG TABLET PO PRN ×4 (02:24→22:32)
[2019-03-07] MEDS: METHOCARBAMOL 500 MG TABLET PO PRN ×4 (02:24→22:32)
[2019-03-07] MEDS ORDERED: METHADONE HCL 10 MG TABLET (FOR DETOX USE ONLY) PO ONE (10:00)
[2019-03-07] MEDS: PRENATAL VITAMINS W/ FOLIC ACID TABLET (FP) PO SCH (10:24)
--- NOTE | 2019-03-07 14:12 | PN ---
BHS COWS - Scale Resting Pulse: 1= [place] 81-100 Sweatin= Chills/Flushing Restless Observation: 1= Difficult to Sit Still Pupil Size: 2= Moderately Dilated Bone or Joint Aches: 1= Mild Discomfort Runny Nose/ Eye Tearin= Nasal Congestion GI Upset > 30mins: 1= Stomach Cramp Tremor Observation of Outstretched Hands: 1= Tremor [place], Not Seen Yawning Observation: 0= None Anxiety or Irritability: 2=Irritable/Anxious Goose Flesh Skin: 0=Smooth Skin COWS Score: 11 BHS Progress Note (SOAP) Subjective: RESTLESS, POOR SLEEP, CRAMPING Objective: 03/07/19 14:11 Laboratory Tests 03/05/19 03/06/19 03/06/19 07:30 08:00 08:00 WBC 7.6 RBC 4.61 Hgb 14.1 Hct 41.3 MCV 89.5 MCH 30.6 MCHC 34.2 RDW 13.5 Plt Count 284 MPV 7.6 Sodium 141 Potassium 4.3 Chloride 108 H Carbon Dioxide 28 Anion Gap 6 L BUN 13.3 Creatinine 0.8 Est GFR (CKD-EPI)AfAm 144.91 Est GFR (CKD-EPI)NonAf 125.03 Random Glucose 83 Calcium 8.8 Total Bilirubin 0.2 AST 10 L ALT 11 L Alkaline Phosphatase 81 Total Protein 6.2 L Albumin 3.6 Urine Color Dk yellow Urine Appearance Turbid Urine pH 5.5 Ur Specific [place] 1.037 H Urine Protein Negative Urine Glucose (UA) Negative Urine Ketones Trace H Urine Blood Negative Urine Nitrite Negative Urine Bilirubin Negative Urine Urobilinogen 1.0 Ur Leukocyte Esterase Negative RPR Titer 03/06/19 08:00 WBC RBC Hgb Hct MCV MCH MCHC RDW Plt Count MPV Sodium Potassium Chloride Carbon Dioxide Anion Gap BUN Creatinine Est GFR (CKD-EPI)AfAm Est GFR (CKD-EPI)NonAf Random Glucose Calcium Total Bilirubin AST ALT Alkaline Phosphatase Total Protein Albumin Urine Color Urine Appearance Urine pH Ur Specific [place] Urine Protein Urine Glucose (UA) Urine Ketones Urine Blood Urine Nitrite Urine Bilirubin Urine Urobilinogen Ur Leukocyte Esterase RPR Titer Nonreactive Vital Signs - 24 hr 03/06/19 03/06/19 03/07/19 18:00 22:23 00:30 Temperature 98.8 F 97.6 F Pulse Rate 87 85 Respiratory 18 16 18 Rate Blood Pressure 103/61 114/77 03/07/19 03/07/19 03/07/19 03:30 06:34 09:22 Temperature 97.4 F L 97.0 F L Pulse Rate 71 88 Respiratory 18 16 18 Rate Blood Pressure 110/70 115/76 03/07/19 13:22 Temperature 97.1 F L Pulse Rate 51 L Respiratory 18 Rate Blood Pressure 107/64 Assessment: 03/07/19 14:11 ONGOING WITHDRAWAL Plan: CONT DETOX PROTOCOL
[2019-03-07] MEDS: THIAMINE HCL 100 MG TABLET (FP) PO SCH (22:32)
[2019-03-07] MEDS: MELATONIN 5 MG TABLETS PO PRN (22:32)
[2019-03-08] MEDS: clonazePAM 0.5 MG TABLET PO PRN ×3 (04:48→19:38)
[2019-03-08] MEDS: METHOCARBAMOL 500 MG TABLET PO PRN ×3 (04:48→19:39)
[2019-03-08] MEDS ORDERED: METHADONE HCL 10 MG TABLET (FOR DETOX USE ONLY) PO ONE (10:00)
[2019-03-08] MEDS: PRENATAL VITAMINS W/ FOLIC ACID TABLET (FP) PO SCH (10:30)
--- NOTE | 2019-03-08 15:40 | PN ---
[facility] CIWA - CIWA Score Nausea/Vomitin-No Nausea/No Vomiting Muscle Tremors: None Anxiety: 4-Mod. Anxious/Guarded Agitation: 3 Paroxysmal Sweats: 3 Orientation: 0-Oriented Tacttile Disturbances: 1-Very Mild Itch/Numbness Auditory Disturbances: 0-None Visual Disturbances: 0-None Headache: 0-None Present CIWA-Ar Total Score: 11 BHS Progress Note (SOAP) Subjective: Sweating, Hot Flashing Sensation, Anxious, Restless. Objective: PATIENT A & O X 3, OBSERVED AMBULATING ON UNIT UNASSISTED. IN NO ACUTE DISTRESS. 03/08/19 15:39 Vital Signs Temperature 97.1 F L 03/08/19 13:16 Pulse Rate 69 03/08/19 13:16 Respiratory Rate 18 03/08/19 13:16 Blood Pressure 107/63 03/08/19 13:16 O2 Sat by Pulse Oximetry (%) Laboratory Tests 03/05/19 03/06/19 03/06/19 07:30 08:00 08:00 WBC 7.6 RBC 4.61 Hgb 14.1 Hct 41.3 MCV 89.5 MCH 30.6 MCHC 34.2 RDW 13.5 Plt Count 284 MPV 7.6 Sodium 141 Potassium 4.3 Chloride 108 H Carbon Dioxide 28 Anion Gap 6 L BUN 13.3 Creatinine 0.8 Est GFR (CKD-EPI)AfAm 144.91 Est GFR (CKD-EPI)NonAf 125.03 Random Glucose 83 Calcium 8.8 Total Bilirubin 0.2 AST 10 L ALT 11 L Alkaline Phosphatase 81 Total Protein 6.2 L Albumin 3.6 Urine Color Dk yellow Urine Appearance Turbid Urine pH 5.5 Ur Specific [place] 1.037 H Urine Protein Negative Urine Glucose (UA) Negative Urine Ketones Trace H Urine Blood Negative Urine Nitrite Negative Urine Bilirubin Negative Urine Urobilinogen 1.0 Ur Leukocyte Esterase Negative RPR Titer 03/06/19 08:00 WBC RBC Hgb Hct MCV MCH MCHC RDW Plt Count MPV Sodium Potassium Chloride Carbon Dioxide Anion Gap BUN Creatinine Est GFR (CKD-EPI)AfAm Est GFR (CKD-EPI)NonAf Random Glucose Calcium Total Bilirubin AST ALT Alkaline Phosphatase Total Protein Albumin Urine Color Urine Appearance Urine pH Ur Specific [place] Urine Protein Urine Glucose (UA) Urine Ketones Urine Blood Urine Nitrite Urine Bilirubin Urine Urobilinogen Ur Leukocyte Esterase RPR Titer Nonreactive LABS NOTED. Assessment: 03/08/19 15:40 WITHDRAWAL SYMPTOMS. Plan: CONTINUE DETOX. PATIENT SCHEDULED FOR D/C TOMORROW.
[2019-03-08] MEDS: THIAMINE HCL 100 MG TABLET (FP) PO SCH (22:44)
[2019-03-08] MEDS: MELATONIN 5 MG TABLETS PO PRN (22:46)
[2019-03-09] MEDS: clonazePAM 0.5 MG TABLET PO PRN ×2 (00:52→08:55)
[2019-03-09] MEDS: METHOCARBAMOL 500 MG TABLET PO PRN ×2 (00:52→08:36)
[2019-03-09] MEDS ORDERED: METHADONE HCL 5 MG TABLET (FOR DETOX USE ONLY) PO ONE (06:00)
[2019-03-09 09:23] VITALS: BP 122/73; PULSE 96; TEMP 97.5
--- NOTE | 2019-03-09 17:15 | DS ---
[facility] Detox Discharge Summary Admission Date: 03/05/19 Discharge Date: 03/09/19 - History Present History: Cocaine Dependence, Opioid Dependence Additional Comments: PATIENT REFERRED TO [facility] ([place], [place]) FOR AFTERCARE. PATIENT WAS DISCHARGED FROM DETOX UNIT IN STABLE MEDICAL CONDITION. Pertinent Past History: Nicotine Dependence, History Of Asthma (During Childhood), Depression, Anxiety, Insomnia. - Physical Exam Results Vital Signs: Vital Signs Temperature 97.5 F L 03/09/19 09:22 Pulse Rate 96 H 03/09/19 09:22 Respiratory Rate 18 03/09/19 09:22 Blood Pressure 122/73 03/09/19 09:22 O2 Sat by Pulse Oximetry (%) Pertinent Admission Physical Exam Findings: WITHDRAWAL SYMPTOMS. Laboratory Tests 03/05/19 03/06/19 03/06/19 07:30 08:00 08:00 WBC 7.6 RBC 4.61 Hgb 14.1 Hct 41.3 MCV 89.5 MCH 30.6 MCHC 34.2 RDW 13.5 Plt Count 284 MPV 7.6 Sodium 141 Potassium 4.3 Chloride 108 H Carbon Dioxide 28 Anion Gap 6 L BUN 13.3 Creatinine 0.8 Est GFR (CKD-EPI)AfAm 144.91 Est GFR (CKD-EPI)NonAf 125.03 Random Glucose 83 Calcium 8.8 Total Bilirubin 0.2 AST 10 L ALT 11 L Alkaline Phosphatase 81 Total Protein 6.2 L Albumin 3.6 Urine Color Dk yellow Urine Appearance Turbid Urine pH 5.5 Ur Specific [place] 1.037 H Urine Protein Negative Urine Glucose (UA) Negative Urine Ketones Trace H Urine Blood Negative Urine Nitrite Negative Urine Bilirubin Negative Urine Urobilinogen 1.0 Ur Leukocyte Esterase Negative RPR Titer 03/06/19 08:00 WBC RBC Hgb Hct MCV MCH MCHC RDW Plt Count MPV Sodium Potassium Chloride Carbon Dioxide Anion Gap BUN Creatinine Est GFR (CKD-EPI)AfAm Est GFR (CKD-EPI)NonAf Random Glucose Calcium Total Bilirubin AST ALT Alkaline Phosphatase Total Protein Albumin Urine Color Urine Appearance Urine pH Ur Specific [place] Urine Protein Urine Glucose (UA) Urine Ketones Urine Blood Urine Nitrite Urine Bilirubin Urine Urobilinogen Ur Leukocyte Esterase RPR Titer Nonreactive LABS NOTED. - Treatment Hospital Course: Detox Protocol Followed, Detoxed Safely, Responded well, Discharged Condition Good Patient has Accepted a Rehab Referral to: [facility] ( [place], [place]). - Medication Discharge Medications: Ambulatory Orders NK [No Known Home Medication] 01/25/18 - Diagnosis (1) Asthma Status: Acute Qualifiers: Asthma severity: mild Asthma persistence: intermittent Asthma complication type: uncomplicated Qualified Code(s): J45.20 - Mild intermittent asthma, uncomplicated (2) Opioid dependence with withdrawal Status: Acute (3) Cocaine dependence Status: Chronic Qualifiers: Substance use status: uncomplicated Qualified Code(s): F14.20 - Cocaine dependence, uncomplicated (4) Nicotine abuse Status: Chronic - AMA Did Patient Leave Against Medical Advice: No
== END 2019-03-09 09:15 | disposition home or self-care (01) | DRG 773 ==
LOC: YASAS 11:28 → Y3N 19:04
PROVIDERS: ADMIT Surgery; ATTEND Surgery
PROC: HZ2ZZZZ Detoxification Services for Substance Abuse Treatment (ICD-10-PCS; principal; 2019-03-05)
DX: F11.23 Opioid dependence with withdrawal (principal); F14.20 Cocaine dependence, uncomplicated; F17.210 Nicotine dependence, cigarettes, uncomplicated; F41.9 Anxiety disorder, unspecified; F32.9 Major depressive disorder, single episode, unspecified; G47.00 Insomnia, unspecified; J45.50 Severe persistent asthma, uncomplicated; Z86.69 Personal history of other diseases of the nervous system and sense organs
CPT/HCPCS: 36415; 80053; 81003; 85027; 86593; 93005; 93010

== ENCOUNTER 2023-05-24 14:50 | Inpatient (IN) | payer OTHER ==
[2023-05-24 16:23] VITALS: BMI 24.0
[2023-05-24] MEDS ORDERED: IBUPROFEN 400 MG TABLET (FP) PO PRN (19:02)
[2023-05-24] MEDS ORDERED: DICYCLOMINE HCL 10 MG CAPSULE PO PRN (19:02)
[2023-05-24] MEDS ORDERED: ONDANSETRON *ODT* 4 MG TABLET SL PRN (19:02)
[2023-05-24] MEDS ORDERED: cloNIDine HCL 0.1 MG TABLET PO PRN (19:02)
[2023-05-24] MEDS ORDERED: IBUPROFEN 600 MG TABLET (FP) PO PRN (19:02)
[2023-05-24] MEDS ORDERED: NALOXONE HCL (KLOXXADO) 8 MG SPRAY NS PRN (19:02)
[2023-05-24] MEDS ORDERED: BISMUTH SUBSALICYLATE 524 MG/30 ML PO PRN (19:02)
[2023-05-24] MEDS ORDERED: MAG HYDROX/AL HYDROX/SIMETH 30 ML UNIT-DOSE CUP PO PRN (19:02)
[2023-05-24] MEDS ORDERED: NALOXONE HCL 0.4 MG/ML VIAL IM PRN (19:02)
[2023-05-24] MEDS ORDERED: ACETAMINOPHEN 325 MG TABLET (FP) PO PRN (19:02)
[2023-05-24] MEDS ORDERED: POLYETHYLENE GLYCOL (HEALTHYLAX) 3350 17 GM PACKET PO PRN (19:02)
[2023-05-24] MEDS ORDERED: guaiFENesin 600 MG TABLET.ER (FP) PO PRN (19:02)
[2023-05-24] MEDS ORDERED: LOPERAMIDE HCL 2 MG CAPSULE PO PRN (19:02)
[2023-05-24] MEDS ORDERED: BENZOCAINE/MENTHOL (CHLORASEPTIC ) LOZENGE MM PRN (19:02)
[2023-05-24] MEDS ORDERED: BENZONATATE 200 MG CAPSULE PO PRN (19:02)
[2023-05-24] MEDS ORDERED: MAGNESIUM HYDROX 2400MG/30ML ORAL SUSPENSION 30 ML CUP PO PRN (19:02)
[2023-05-24] MEDS ORDERED: methaDONE HCL 10 MG TABLET (FOR DETOX USE ONLY) ONE (19:33)
[2023-05-24] MEDS ORDERED: methaDONE HCL 10 MG TABLET (FOR DETOX USE ONLY) PO ONE (20:15)
[2023-05-24] MEDS: MELATONIN 5 MG TABLETS PO SCH (22:27)
[2023-05-24] MEDS: THIAMINE HCL 100 MG TABLET (FP) PO SCH (22:27)
[2023-05-24] MEDS: diazePAM 5 MG TABLET PO PRN (22:27)
[2023-05-25] MEDS: diazePAM 5 MG TABLET PO PRN ×3 (04:33→17:29)
[2023-05-25] MEDS: PRENATAL VITAMINS W/ FOLIC ACID TABLET (FP) PO SCH (10:06)
[2023-05-25 10:19] LABS: POTASSIUM 4.7 mmol/L (3.5-5.1)
[2023-05-25 10:21] LABS: ALBUMIN 3.7 g/dl (3.4-5.0); BLOOD UREA NITROGEN 10.6 mg/dL (7-18)
[2023-05-25 10:24] LABS: CREATININE 0.8 mg/dL (0.55-1.3)
[2023-05-25 10:26] LABS: BILIRUBIN,TOTAL 0.2 mg/dL (0.2-1); TOT PROT 6.8 g/dl (6.4-8.2)
[2023-05-25 10:38] LABS: HEMATOCRIT 41.6 % (35.4-49); HEMOGLOBIN 13.9 GM/dL (11.7-16.9); MCHC 33.4 g/dl (32.0-35.9); MEAN CELL VOLUME 89.9 fl (80-96); MEAN PLT VOLUME 8.1 fl (7.5-11.1); PLATELET COUNT 227 10^3/uL (134-434); RBC 4.63 M/mm3 (4.00-5.60); RDW 13.9 % (11.9-15.9); WHITE BLOOD COUNT 4.6 K/mm3 (4.0-10.0)
[2023-05-25] MEDS: MELATONIN 5 MG TABLETS PO SCH (21:54)
[2023-05-25] MEDS: THIAMINE HCL 100 MG TABLET (FP) PO SCH (21:55)
[2023-05-25] MEDS: METHOCARBAMOL 500 MG TABLET PO PRN (21:55)
[2023-05-25] MEDS: hydrOXYzine PAMOATE 25 MG CAPSULE (FP) PO PRN (21:55)
[2023-05-26] MEDS: diazePAM 5 MG TABLET PO PRN ×4 (04:04→22:25)
[2023-05-26] MEDS ORDERED: methaDONE HCL 10 MG TABLET (FOR DETOX USE ONLY) PO ONE (10:00)
[2023-05-26] MEDS: PRENATAL VITAMINS W/ FOLIC ACID TABLET (FP) PO SCH (10:12)
[2023-05-26] MEDS: MELATONIN 5 MG TABLETS PO SCH (22:25)
[2023-05-26] MEDS: METHOCARBAMOL 500 MG TABLET PO PRN (22:26)
[2023-05-26] MEDS: THIAMINE HCL 100 MG TABLET (FP) PO SCH (23:07)
[2023-05-27] MEDS: diazePAM 5 MG TABLET PO PRN ×4 (02:04→18:39)
[2023-05-27] MEDS: METHOCARBAMOL 500 MG TABLET PO PRN ×3 (07:46→21:58)
[2023-05-27] MEDS: PRENATAL VITAMINS W/ FOLIC ACID TABLET (FP) PO SCH (10:26)
[2023-05-27] MEDS: hydrOXYzine PAMOATE 25 MG CAPSULE (FP) PO PRN (21:58)
[2023-05-27] MEDS: MELATONIN 5 MG TABLETS PO SCH (21:58)
[2023-05-27] MEDS: THIAMINE HCL 100 MG TABLET (FP) PO SCH (21:58)
[2023-05-28] MEDS: METHOCARBAMOL 500 MG TABLET PO PRN (05:34)
[2023-05-28 09:05] VITALS: BP 138/86; PULSE 120; RESP 18; TEMP 97.7
[2023-05-28] MEDS: PRENATAL VITAMINS W/ FOLIC ACID TABLET (FP) PO SCH (09:18)
[2023-05-28] MEDS ORDERED: methaDONE HCL 10 MG TABLET (FOR DETOX USE ONLY) PO ONE (10:00)
== END 2023-05-28 09:42 | disposition home or self-care (01) | DRG 773 ==
LOC: YASAS 14:50 → Y3N 19:09
PROVIDERS: ADMIT Allergy & Immunology; ATTEND Surgery
PROC: HZ2ZZZZ Detoxification Services for Substance Abuse Treatment (ICD-10-PCS; principal; 2023-05-24)
DX: F11.23 Opioid dependence with withdrawal (principal); F14.20 Cocaine dependence, uncomplicated; F51.05 Insomnia due to other mental disorder; M54.50 Low back pain, unspecified; G89.29 Other chronic pain; Z28.310 Unvaccinated for COVID-19; Z28.9 Immunization not carried out for unspecified reason
CPT/HCPCS: 36415; 80053; 85027; 86780; 87635